=== PATIENT | male | born 1980 | race African-American/Black ===

== ENCOUNTER 2021-04-23 02:29 | Emergency (ER) | payer SELFPAY ==
[~2021-04-23] VITALS: Ht 172.7 cm; Wt 72.9 kg
[2021-04-23 02:31] VITALS: BP 148/87
[2021-04-23] MEDS ORDERED: PROCHLORPERAZINE 5 MG/ML, 2ML ONE (02:57)
[2021-04-23] MEDS ORDERED: DIPHENHYDRAMINE 50 MG/ML, 1ML ONE (02:57)
[2021-04-23] MEDS ORDERED: KETOROLAC 30 MG/1 ML ONE (02:57)
[2021-04-23] MEDS ORDERED: SODIUM CHLORIDE FLUSH 10ML SYR IVF ONE (03:00)
[2021-04-23] MEDS ORDERED: DIPHENHYDRAMINE 50 MG/ML, 1ML IVPush ONE (03:00)
[2021-04-23] MEDS ORDERED: SODIUM CHLORIDE 0.9% 1,000ML IVBOLUS ONE (03:00)
[2021-04-23] MEDS ORDERED: KETOROLAC 30 MG/1 ML IVPush ONE ×2 (03:00→05:30)
[2021-04-23] MEDS ORDERED: PROCHLORPERAZINE 5 MG/ML, 2ML IVPush ONE (03:00)
[2021-04-23 03:18] LABS: BASOPHILS % (AUTO) 1 % (0-1); EOSINOPHILS % (AUTO) 2 % (1-7); LYMPHOCYTES % (AUTO) 22 % (22-44); MEAN CORPUSCULAR HGB CONC 33.7 g/dL (33.2-36.2); MEAN PLATELET VOLUME 7.7 fL (7.4-10.4); MONOCYTES % (AUTO) 9 % (2-9); NEUTROPHILS % (AUTO) 67 % (42-75); PLATELET COUNT 207 x10^3/uL (130-400); RED BLOOD COUNT 4.94 x10^6/uL (4.38-5.82); RED CELL DISTRIBUTION WIDTH 15.8 % (9.4-14.8)
[2021-04-23] MEDS ORDERED: MORPHINE SULFATE 4 MG/ML, 1ML ONE (03:24)
[2021-04-23 03:30] LABS: ANION GAP 7 mmol/L (5-15); CALCIUM 8.8 mg/dL (8.5-10.1); CHLORIDE 106 mmol/L (98-107); CREATININE 1.46 mg/dL (0.7-1.3)
[2021-04-23] MEDS ORDERED: MORPHINE SULFATE 4 MG/ML, 1ML IVPush PRN (03:30)
[2021-04-23] MEDS ORDERED: OMNIPAQUE 350 MG/ML, 75ML BOTTLE ONE (04:02)
--- NOTE | 2021-04-23 06:15 | NUR ---
Patient/Caregiver given discharge instructions and they have confirmed that they understand the instructions. Patient ambulatory with steady gait. NAD, all questions answered appropriately, denies additional needs at this time. No personal belongings left in room after discharge.
== END 2021-04-23 06:28 | disposition home or self-care (01) ==
LOC: ED 05:00
DX: G43.909 Migraine, unspecified, not intractable, without status migrainosus (principal); R42 Dizziness and giddiness; R94.31 Abnormal electrocardiogram [ECG] [EKG]; F17.210 Nicotine dependence, cigarettes, uncomplicated
CPT/HCPCS: 36415; 70450; 70496; 80048; 85025; 93005; 96361; 96374; 96375; 99285; 99406; J0780; J1200; J1885; J2270; J7030; Q9967